=== PATIENT | female | born 2000 | race Two or more races ===

== ENCOUNTER 2023-10-22 11:54 | Emergency (ER) | payer MEDICAID, OTHER ==
[~2023-10-22] VITALS: Ht 154.9 cm; Wt 59.0 kg
[2023-10-22 14:30] VITALS: BP 112/72; PULSE 88; RESP 12; TEMP 98.5; O2SAT 100
[2023-10-22] MEDS ORDERED: IBUP1TAB5 PO (14:40)
== END 2023-10-22 14:40 | disposition home or self-care (01) ==
LOC: ER 11:54
DX: M25.512 Pain in left shoulder (principal); Z79.899 Other long term (current) drug therapy